=== PATIENT | male | born 1970 | race Caucasian/White ===

== ENCOUNTER 2019-09-15 10:01 | Emergency (ER) | payer BC ==
--- NOTE | 2019-09-15 12:19 | EDM.PDOC ---
ED HPI GENERAL MEDICAL PROBLEM - General Chief Complaint: Lower Extremity Injury/Pain Stated Complaint: POSS BLOOD CLOT IN RIGHT LEG Time Seen by Provider: 09/15/19 10:40 Source of Information: Reports: Patient, RN Notes Reviewed - History of Present Illness INITIAL COMMENTS - FREE TEXT/NARRATIVE: 48-year-old male has noticed an area of mild swelling and bruising right anterior mid thigh. He noticed it feels kind of "ropelike going to the right and to the left somewhat obliquely up and down the thigh. He has no distal calf pain swelling warmth or erythema. Not aware of any particular injury. No chest pain or difficulty breathing. Right Upper Leg Pain Score (Numeric/FACES): 5 - Related Data Allergies Allergy/AdvReac Type Severity Reaction Status Date / Time Penicillins Allergy Rash Verified 09/15/19 10:27 Home Meds: Home Meds Aspirin 162 mg PO DAILY 09/15/19 [History] Lisinopril 10 mg PO DAILY 09/15/19 [History] metFORMIN [Glucophage] 500 mg PO BIDMEALS 09/15/19 [History] Past Medical History Cardiovascular History: Reports: Hypertension Endocrine/Metabolic History: Reports: Diabetes, Type II Social & Family History - Tobacco Use Smoking Status *Q: Never Smoker - Recreational Drug Use Recreational Drug Use: No Review of Systems - Review of Systems Review Of Systems: See Below Constitutional: Denies: Chills, Fever Mouth/Throat: Reports: No Symptoms Respiratory: Denies: Shortness of Breath, Pleuritic Chest Pain Cardiovascular: Denies: Chest Pain GI/Abdominal: Denies: Abdominal Pain, Nausea, Vomiting Musculoskeletal: Denies: Leg Pain, Joint Pain, Joint Swelling, Muscle Pain Skin: Reports: Erythema Neurological: Denies: Numbness, Tingling, Weakness ED EXAM, GENERAL - Physical Exam Exam: See Below General Appearance: Alert, No Apparent Distress Throat/Mouth: Normal Inspection, Normal Oropharynx Head: Atraumatic. No: Facial Swelling Neck: Supple Respiratory/Chest: No Respiratory Distress, Lungs Clear, Normal Breath Sounds Cardiovascular: Regular Rate, Rhythm Back Exam: No: CVA Tenderness (L), CVA Tenderness (R) Extremities: Other (area of mild swelling, erythema R ant thigh, somewhat of a linear orientation, nontender) Course - Vital Signs Last Recorded V/S: Last Vital Signs Temp 97.5 F 09/15/19 10:23 Pulse 81 09/15/19 10:23 Resp 16 09/15/19 10:23 BP 160/76 H 09/15/19 10:23 Pulse Ox 97 09/15/19 10:23 - Orders/Labs/Meds Labs: Laboratory Tests 09/15/19 09/15/19 09/15/19 Range/Units 10:58 10:58 10:58 WBC 5.55 (4.23-9.07) K/mm3 RBC 4.63 (4.63-6.08) M/mm3 Hgb 13.7 (13.7-17.5) gm/dl Hct 39.4 L (40.1-51.0) % MCV 85.1 (79.0-92.2) fl MCH 29.6 (25.7-32.2) pg MCHC 34.8 (32.2-35.5) g/dl RDW Std Deviation 42.7 (35.1-43.9) fL Plt Count 198 (163-337) K/mm3 MPV 8.5 L (9.4-12.3) fl Neut % (Auto) 74.9 H (34.0-67.9) % Lymph % (Auto) 14.8 L (21.8-53.1) % O'Brien % (Auto) 7.2 (5.3-12.2) % Eos % (Auto) 2.5 (0.8-7.0) Baso % (Auto) 0.2 (0.1-1.2) % Neut # (Auto) 4.16 (1.78-5.38) K/mm3 Lymph # (Auto) 0.82 L (1.32-3.57) K/mm3 O'Brien # (Auto) 0.40 (0.30-0.82) K/mm3 Eos # (Auto) 0.14 (0.04-0.54) K/mm3 Baso # (Auto) 0.01 (0.01-0.08) K/mm3 PT 10.7 (9.7-12.0) SECONDS INR 0.98 APTT 24 (22-31) SECONDS Sodium 136 (136-145) mEq/L Potassium 4.9 (3.5-5.1) mEq/L Chloride 103 (98-107) mEq/L Carbon Dioxide 28 (21-32) mEq/L Anion Gap 9.9 (5-15) BUN 15 (7-18) mg/dL Creatinine 1.0 (0.7-1.3) mg/dL Est Cr Clr Drug Dosing 99.88 mL/min Estimated GFR (MDRD) > 60 (>60) mL/min BUN/Creatinine Ratio 15.0 (14-18) Glucose 130 H (74-106) mg/dL Calcium 8.6 (8.5-10.1) mg/dL Total Bilirubin 0.5 (0.2-1.0) mg/dL AST 16 (15-37) U/L ALT 34 (16-63) U/L Alkaline Phosphatase 68 (46-116) U/L Total Protein 6.9 (6.4-8.2) g/dl Albumin 3.8 (3.4-5.0) g/dl Globulin 3.1 gm/dL Albumin/Globulin Ratio 1.2 (1-2) - Re-Assessments/Exams Free Text/Narrative Re-Assessment/Exam: 09/20/19 18:12 US shows superfiscial thrombophlebitis, no evidence for DVT, see Radiologist report for details. Departure - Departure Time of Disposition: 12:27 Disposition: Home, Self-Care 01 Condition: Fair Clinical Impression: Thrombophlebitis - Discharge Information Instructions: Thrombophlebitis Referrals: Luh Rosales [employer] [Primary Care Provider] - Forms: ED Department Discharge Additional Instructions: moist heat 3 to 4 times daily, advil or ibuprofen 600 mg with food 3 times daily for 1 week only. Drink plenty of water when taking the ibuprofen so that does not stress your kidney. Follow up [facility] in 5 to 6 days for recheck , return to ED if symptoms worsening in any way.
--- NOTE | 2019-09-15 12:31 | US ---
Right lower extremity deep venous ultrasound: Duplex and color flow imaging was obtained of the right common femoral, proximal greater saphenous, superficial femoral, popliteal, posterior tibial and peroneal veins. Left common femoral vein was also evaluated. Findings: Normal phasic flow, augmentation and compression is seen. There is a varicosity within the mid to distal anterior thigh showing evidence of thrombus. Impression: 1. Findings compatible with superficial thrombophlebitis within the anterior thigh involving a varicosity. 2. No evidence of deep venous thrombosis within the right lower extremity or left common femoral vein. Diagnostic code #3
== END 2019-09-15 12:50 | disposition home or self-care (01) ==
LOC: JD.ED 10:01
DX: I80.01 Phlebitis and thrombophlebitis of superficial vessels of right lower extremity (principal); I10 Essential (primary) hypertension; E11.9 Type 2 diabetes mellitus without complications; Z88.0 Allergy status to penicillin; Z79.82 Long term (current) use of aspirin; Z79.899 Other long term (current) drug therapy; Z79.84 Long term (current) use of oral hypoglycemic drugs
CPT/HCPCS: 36415; 80053; 85025; 85610; 85730; 93971-26-RT; 93971-RT; 99282; 99284-25